=== PATIENT | female | born 1995 | race Caucasian/White ===

== ENCOUNTER → 2020-05-24 | Outpatient (CLI) | payer OTHER | LOC: COL.RAD 06:53 | DX: G43.719 Chronic migraine without aura, intractable, without status migrainosus (principal); G43.119 Migraine with aura, intractable, without status migrainosus; M54.12 Radiculopathy, cervical region ==

== ENCOUNTER → 2020-07-08 | Outpatient (CLI) | payer OTHER | LOC: COL.RAD 06:59 | DX: G43.719 Chronic migraine without aura, intractable, without status migrainosus (principal) ==

== ENCOUNTER → 2020-08-29 | Outpatient (CLI) | payer OTHER | LOC: COL.RAD 07:04 | DX: N83.201 Unspecified ovarian cyst, right side (principal); M25.551 Pain in right hip ==

== ENCOUNTER → 2020-09-27 | Outpatient (CLI) | payer OTHER | LOC: COL.RAD 06:56 | DX: R51.9 Headache, unspecified (principal); R42 Dizziness and giddiness | CPT/HCPCS: A9585 ==

== ENCOUNTER → 2021-02-10 | Outpatient (CLI) | payer OTHER | LOC: COL.RAD 09:00 | DX: M47.814 Spondylosis without myelopathy or radiculopathy, thoracic region (principal); M48.00 Spinal stenosis, site unspecified | CPT/HCPCS: A9585 ==

== ENCOUNTER → 2021-02-18 | Outpatient (CLI) | payer OTHER | LOC: COL.RAD 08:18 | DX: R20.2 Paresthesia of skin (principal) | CPT/HCPCS: A9503 ==